=== PATIENT | male | born 1980 | race Caucasian/White ===

== ENCOUNTER → 2020-03-28 | Outpatient (CLI) | payer BC ==
--- NOTE | 2020-03-28 17:30 | KCIC ---
EXAM: Right ankle, 3 views. HISTORY: Pain. COMPARISON: None. FINDINGS: 3 views of the right ankle are obtained. There is a tiny ossicle inferior to the medial malleolus, the appearance of which favors a chronic nonunited fracture fragment. No convincing acute fracture is seen. There is diffuse soft tissue swelling. The ankle mortise is intact. There is no osteochondral lesion. There is a small plantar spur. IMPRESSION: 1. Diffuse soft tissue swelling. 2. 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 Electronically signed by: Celeste Crisostomo MD (03/28/2020 5:27 PM) [id number]
== END | disposition home or self-care (01) ==
LOC: KCIC 15:06
PROVIDERS: ATTEND Nurse Practitioner Family
DX: M77.30 Calcaneal spur, unspecified foot (principal); M77.31 Calcaneal spur, right foot; M79.89 Other specified soft tissue disorders
CPT/HCPCS: 73610